=== PATIENT | female | born 1970 | race Caucasian/White ===

== ENCOUNTER 2017-12-30 00:27 | Emergency (ER) | payer BC, OTHER ==
[2017-12-30 01:23] VITALS: BP 152/95; PULSE 86; TEMP 98; BMI 46.9
--- NOTE | 2017-12-30 01:27 | PDOC ---
History of Present Illness - General Chief Complaint: Chronic pain Stated Complaint: PAIN Time Seen by Provider: 12/30/17 01:27 History Source: Patient - History of Present Illness Initial Comments: 12/30/17 02:51 47 year old female with lower back pain radiating to left leg. Past History - Past Medical History Allergies/Adverse Reactions: Allergies Allergy/AdvReac Type Severity Reaction Status Date / Time No Known Allergies Allergy Verified 12/30/17 01:37 Home Medications: Ambulatory Orders Citalopram Hydrobromide [Celexa -] 40 mg PO DAILY 12/30/17 Cyclobenzaprine HCl [Flexeril -] 10 mg PO TID PRN #21 tablet 12/30/17 Gabapentin 300 mg PO DAILY 12/30/17 Ibuprofen 800 mg PO QID PRN #20 tablet 12/30/17 Levothyroxine [Synthroid -] 25 mcg PO DAILY 12/30/17 Losartan/Hydrochlorothiazide [Losartan-Hctz 50-12.5 mg Tab] 1 each PO DAILY Omeprazole 40 mg PO DAILY 12/30/17 Oxycodone HCl/Acetaminophen [Percocet 5-325 mg Tablet] 1 tab PO Q6H PRN #7 tablet MDD 4 12/30/17 - Suicide/Smoking/Psychosocial Hx Smoking History: Never smoked Have you smoked in the past 12 months: No Information on smoking cessation initiated: No Hx Alcohol Use: No Drug/Substance Use Hx: No *Physical Exam - Vital Signs Last Vital Signs Temp Pulse Resp BP Pulse Ox 98.0 F 86 18 152/95 98 12/30/17 00:45 12/30/17 00:45 12/30/17 00:45 12/30/17 00:45 12/30/17 00:45 - Physical Exam General Appearance: Yes: Appropriately Dressed Respiratory/Chest: positive: Lungs Clear, Normal Breath Sounds Cardiovascular: positive: Regular Rhythm, Regular Rate Gastrointestinal/Abdominal: positive: Normal Bowel Sounds, Soft Musculoskeletal: positive: Normal Inspection. negative: Vertebral Tenderness Extremity: positive: Normal Capillary Refill, Normal Inspection, Normal Range of Motion, Other (+ PEDAL PULSE) Integumentary: positive: Normal Color, Dry, Warm Neurologic: positive: Fully Oriented, Alert, Normal Mood/Affect Medical Decision Making - Medical Decision Making 12/30/17 02:59 Lumbar vertebrae are normally aligned. No fracture or destructive bone lesion. Degenerative disc thinning at L5-S1. 12/30/17 03:00 Patient reports mild pain relief. *DC/Admit/Observation/Transfer Diagnosis at time of Disposition: Low back pain with sciatica Qualifiers: Chronicity: acute Back pain laterality: left Sciatica laterality: sciatica of left side Qualified Code(s): M54.42 - Lumbago with sciatica, left side - Discharge Dispostion Disposition: HOME Condition at time of disposition: Fair - Prescriptions Prescriptions: Cyclobenzaprine HCl [Flexeril -] 10 mg PO TID PRN #21 tablet PRN Reason: Muscle Spasms Ibuprofen 800 mg PO QID PRN #20 tablet PRN Reason: Pain Level 4 - 6 Oxycodone HCl/Acetaminophen [Percocet 5-325 mg Tablet] 1 tab PO Q6H PRN #7 tablet MDD 4 PRN Reason: Pain Level 7 - 10 - Referrals Referrals: Courtney Marcelo [Primary Care Provider] - Riki Pearce MD [Staff Physician] - - Patient Instructions Printed Discharge Instructions: DI for Back Pain With Sciatica Additional Instructions: please follow up with orthopedic as soon as possible take ibuprofen as prescribed for mild to moderate pain take percocet as prescribed for moderate to severe pain take flexeril as prescribed, return to the ER if symptoms worsen - Post Discharge Activity Forms/Work/School Notes: Back to Work
[2017-12-30] MEDS ORDERED: diazePAM 5 MG TABLET PO ONE (01:48)
[2017-12-30] MEDS ORDERED: diazePAM 5 MG TABLET ONE (01:55)
[2017-12-30 02:11] LABS: URINE APPEARANCE SLCLOUDY; URINE BILIRUBIN NEGATIVE (<2.0 mg/dL); URINE COLOR LTYELLOW; URINE GLUCOSE (UA) NEGATIVE (NEGATIVE); URINE KETONE NEGATIVE (NEGATIVE); URINE LEUK ESTERASE NEGATIVE (NEGATIVE); URINE NITRITE NEGATIVE (NEGATIVE); URINE PROTEIN NEGATIVE (NEGATIVE); URINE UROBILINOGEN NEGATIVE mg/dL (0.2-1.0)
[2017-12-30] MEDS ORDERED: IBUPROFEN 400 MG TABLET (FP) PO ONE ×2 (02:59→03:03)
== END 2017-12-30 03:10 | disposition home or self-care (01) ==
LOC: JER 00:27
DX: M54.42 Lumbago with sciatica, left side (principal)
CPT/HCPCS: 72100-TC-FY; 81003; 99282-25